=== PATIENT | male | born 1975 | race Caucasian/White ===

== ENCOUNTER → 2022-02-28 | Outpatient (CLI) | payer MEDICARE, OTHER ==
[2022-02-28 12:23] LABS: HEMOGLOBIN 16.8 gm/dl (14.0-17.5); RED BLOOD COUNT 5.48 M/UL (4.20-5.50); WHITE BLOOD COUNT 5.3 K/UL (4.5-11.0)
[2022-02-28 12:41] LABS: BUN/CREATININE RATIO 19 (0-10)
[2022-03-01 08:16] LABS: VITAMIN D, 25-HYDROXY 32.8 ng/mL (30.0-100.0)
[2022-03-01 11:16] LABS: THYROXINE (T4) 8.7 ug/dL (4.5-12.0)
== END ==
LOC: LAB 11:06
PROVIDERS: Nurse Practitioner
DX: E78.5 Hyperlipidemia, unspecified (principal); F31.9 Bipolar disorder, unspecified; K21.9 Gastro-esophageal reflux disease without esophagitis; R53.83 Other fatigue; E55.9 Vitamin D deficiency, unspecified
CPT/HCPCS: 36415; 80053; 80061; 81001; 84436; 84443; 84480; 85025